=== PATIENT | female | born 1950 | race Caucasian/White ===

== ENCOUNTER → 2024-01-25 14:52 | Outpatient (REF) | payer MEDICARE, OTHER, SELFPAY | LOC: HWRCS 14:52 | PROVIDERS: ATTENDING PHYSICIAN Internal Medicine; FAMILY PHYSICIAN Internal Medicine Geriatric Medicine | DX: I47.10 Supraventricular tachycardia, unspecified (principal); I49.3 Ventricular premature depolarization; I10 Essential (primary) hypertension; I65.23 Occlusion and stenosis of bilateral carotid arteries | CPT/HCPCS: 93306 ==

== ENCOUNTER → 2024-03-01 15:22 | Outpatient (REF) | payer MEDICARE, OTHER, SELFPAY | LOC: HWRAD 15:22 | PROVIDERS: ATTENDING PHYSICIAN Internal Medicine Geriatric Medicine | DX: M54.50 Low back pain, unspecified (principal) | CPT/HCPCS: 72110 ==

== ENCOUNTER 2024-06-30 06:13 | Emergency (ER) | payer MEDICARE, OTHER, SELFPAY ==
[2024-06-30 06:13] VITALS: BMI 29.1
[2024-06-30 06:18] VITALS: BP 154/84
[2024-06-30 06:36] VITALS: BP 143/65
[2024-06-30 07:00] VITALS: BP 143/65
--- NOTE | 2024-06-30 07:13 | ED.GENMED ---
History of Present Illness
General
Chief Complaint: Abdominal Symptoms
Source: patient
Exam Limitations: none
Time Seen by Provider: 06/30/24 06:39
Nursing documentation reviewed up to this point in time: agreed with
History of Present Illness
History of Present Illness:
Patient presents to ED for evaluation after waking up this morning with continual vomiting episodes and loose bowel movements, along with burning sensation in her throat from repeated vomiting episodes. Since then, patient has developed mild upper
abdominal pain. Patient and her spouse attended a gathering at friend's house for dinner. When she went to sleep last night, patient did not experience any discomfort. Denies recent change in medications or diet. Denies sick contact. Denies
previous history of similar symptoms. Denies headache. Denies dizziness. Denies shortness of breath. Denies recent travel.
Past History
Past History
ED Past Medical History: GERD and Hypercholesterolemia
ED Past Surgical History: Cholecystectomy, Gynecological and Orthopedic
Social History
Tobacco: Non-smoker
Alcohol: Occasional
Drug: None
Personal:
Living: with family
Review of Systems
Review of Systems
Allergies reviewed?: Yes
All Other Systems: ROS reviewed and negative except as documented in HPI and ROS
Constitutional: Reports no symptoms; Denies fever
EENT: Reports no symptoms
Respiratory: Reports no symptoms
Cardiac: Reports no symptoms
ABD/GI: Reports abdominal pain, nausea and vomiting
Musculoskeletal: Reports no symptoms
Skin: Reports no symptoms
Neurological: Reports no symptoms
Phy Exam
Physical Exam
Physical Exam:
Physical Exam
General: moderate distress, not acutely ill. afebrile
Head: nc/at. eomi
Neck: supple. no meningeal signs.
Heart: s1/s2 regular rate and rhythm, no murmur. equal radial pulses.
Lungs: no acute respiratory distress. clear bilaterally
Abdomen: normal bowel sounds. not tender. no distention.
Neuro: alert and oriented. no focal neurological deficits
Skin: no rash
Psychiatric: well kept. interactive and cooperative
Extremities: no edema. no calf tenderness.
Course
Orders/Labs/Results
Orders:
Orders
06/30/24 06:48
0.9% Sodium Chloride 1000 ml [Nss] 1,000 ml IV BOLUS
Ketorolac [Toradol] 15 mg IV NOW STA
Ondansetron Injectable [Zofran] 4 mg IV NOW STA
Pantoprazole [Protonix IV] 40 mg IV NOW STA
06/30/24 07:08
Complete Blood Count/With Diff Urgent
Comprehensive Metabolic Panel Urgent
Magnesium Urgent
Abnormal Lab Results
06/30/24
07:08
WBC 11.7 H 10^3/uL
(4.8-10.8)
MCH 31.7 H pg
(27.0-31.0)
MCHC 32.1 L g/dL
(33.0-37.0)
Absolute Neuts (auto) 10.3 H 10^3/uL
(1.4-6.5)
Absolute Lymphs (auto) 0.7 L 10^3/uL
(1.2-3.4)
Neutrophils % 88.2 H %
(42.2-75.2)
Lymphocytes % 6.1 L %
(20.5-51.1)
BUN 24 H mg/dl
(7-17)
Glucose 154 H mg/dl
(70-99)
06/30/24 07:08
06/30/24 07:08
Vital Signs
Initial and Last Documented VS:
Initial Vital Signs
Pulse Resp BP Pulse Ox
54 24 154/84 95
06/30/24 06:18 06/30/24 06:18 06/30/24 06:18 06/30/24 06:18
Last Documented Vital Signs
Pulse Resp BP Pulse Ox
54 24 137/84 94
06/30/24 06:18 06/30/24 06:18 06/30/24 10:00 06/30/24 10:30
MDM/Problems Addressed
MDM/Problems Addressed:
History and exam consistent with likely nonspecific diarrhea, likely viral in nature. Fortunately, patient remains afebrile, hemodynamically stable, and nontoxic-appearing. Patient reports improvement in symptoms after IV hydration. Patient will
be discharged home in stable condition, to the care of her spouse, with recommendation to continue hydration at home along with PMD follow-up as an outpatient, with any continuing or concerning symptoms.
*Critical Care Note
Total Time (30-74mins, 75-104mins- exclusive of procedures): Not Applicable
ED Attending Note
-
Portions of this chart may have been created with voice recognition software.� Occasional wrong word or��sound alike� substitutions may have occurred due to the inherent limitations of voice recognition software.
Discharge Plan
Departure
Patient Disposition: Home (Routine Discharge)
Date of Disposition: 06/30/24
Time of Disposition: 11:15
Patient with high blood pressure during this ER visit?: Yes
Condition: Good
Discharge Problem:
Gastroenteritis
Instructions: Viral gastroenteritis in adults
Prescriptions:
New
ondansetron 4 mg Tablet,Disintegrating
4 mg PO TIDPRN PRN (Reason: nausea/vomiting) Qty: 12 0RF
No Action
multivitamin [Deh-Xkozhl-Zbgxs] 1 EACH tablet
1 ea PO DAILY
simvastatin 20 MG tablet
20 mg PO DAILY
cholecalciferol (vitamin D3) 2,000 UNIT tablet
2,000 unit PO DAILY
vitamin I03-ecovm acid 1 EACH tablet, sublingual
500 mcg PO DAILY
nizatidine [Axid] 150 MG capsule
150 mg PO BID
Claritin
10 mg PO DAILY PRN (Reason: allergies)
Referrals:
Neal Salcido MD [Family Provider] -
Activity Restrictions/Additional Instructions:
As discussed, please follow-up with your primary care physician with any further concerns. Your prescription has been sent electronically to [facility] pharmacy in [place].
Interventions
Interventions:
*Risk Screen - Suicide Last Done: 06/30/24 06:18
*General Assessment Last Done: 06/30/24 06:37
*Neglect/Abuse Screening Last Done: 06/30/24 06:18
ED- Fall Risk Assessment Last Done: 06/30/24 11:20
*ED COVID-19 Vaccine History Last Done: 06/30/24 06:37
*Nursing Disposition Last Done: 06/30/24 11:20
OK-Tmmkdl-Qvliklvfct Assessment Last Done: 06/30/24 06:38
Discharge Date and Time
Discharge Date/Time: 06/30/24 11:20
Print Language: FRENCH
[2024-06-30] MEDS: TORADOL 15 MG IV (07:15)
[2024-06-30] MEDS: NSS 1000 IV (07:15)
[2024-06-30] MEDS: ZOFRAN 4 MG IV (07:16)
[2024-06-30] MEDS: PROTONIX IV 40 MG IV (07:16)
[2024-06-30 07:48] LABS: % Basophils 0.2 % (0-2); % Eosinophils 0.3 % (0-6); % Immature Granulocytes 0.3 % (0-0.5); % Lymphocytes 6.1 % (20.5-51.1); % Monocytes 4.9 % (1.7-9.3); % Neutrophils 88.2 % (42.2-75.2); Absolute Lymphocytes 0.7 10^3/uL (1.2-3.4); Absolute Monocytes 0.6 10^3/uL (0.1-0.6); Absolute Neutrophils 10.3 10^3/uL (1.4-6.5); Hematocrit 44.5 % (37.0-47.0); Hemoglobin 14.3 g/dL (12.0-16.0); Mean Corp Hgb Conc. 32.1 g/dL (33.0-37.0); Mean Corpuscular Hgb 31.7 pg (27.0-31.0); Mean Corpuscular Volume 98.7 fL (81.0-99.0); Mean Platelet Volume 9.4 fL (7.4-10.4); Nucleated Red Blood Cells % 0 %; Platelet Count 162 10^3/uL (130-400); Red Blood Cell Count 4.51 10^6/uL (4.20-5.40); Red Cell Dist. Width 13.1 % (11.5-14.5); White Blood Cell Count 11.7 10^3/uL (4.8-10.8)
[2024-06-30 08:00] VITALS: BP 142/82
[2024-06-30 08:00] LABS: ALT (SGPT) 19 U/L (0-35); AST (SGOT) 25 U/L (14-36); Albumin 4.1 g/dl (3.5-5.0); Alkaline Phosphatase 69 U/L (38-126); Blood Urea Nitrogen 24 mg/dl (7-17); Calcium 8.8 mg/dl (8.4-10.2); Carbon Dioxide 28 mmol/L (22-30); Chloride 105 mmol/L (98-107); Estimated Creatinine Clearance 63 ml/min; Glucose 154 mg/dl (70-99); Magnesium 1.7 mg/dl (1.6-2.3); Potassium 4.4 mmol/L (3.5-5.1); Sodium 141 mmol/L (135-145); Total Bilirubin 0.7 mg/dl (0.2-1.3); Total Protein 6.8 g/dl (6.3-8.2); eGFR > 60.00
[2024-06-30 09:00] VITALS: BP 135/90
[2024-06-30 10:00] VITALS: BP 137/84
== END 2024-06-30 11:20 | disposition home or self-care (01) ==
LOC: EMR 06:13
PROVIDERS: EMERGENCY PHYSICIAN Emergency Medicine; FAMILY PHYSICIAN Internal Medicine Geriatric Medicine
DX: K52.9 Noninfective gastroenteritis and colitis, unspecified (principal); R03.0 Elevated blood-pressure reading, without diagnosis of hypertension; K21.9 Gastro-esophageal reflux disease without esophagitis; E78.00 Pure hypercholesterolemia, unspecified; Z85.820 Personal history of malignant melanoma of skin; Z86.16 Personal history of COVID-19; Z90.49 Acquired absence of other specified parts of digestive tract; Z88.1 Allergy status to other antibiotic agents; Z88.0 Allergy status to penicillin
CPT/HCPCS: 99284; 96374; 96375 ×2; 96361; 80053; 83735; 85025

== ENCOUNTER → 2024-09-06 09:12 | Outpatient (REF) | payer MEDICARE, OTHER, SELFPAY | LOC: HWWDC 09:12 | PROVIDERS: ATTENDING PHYSICIAN Nurse Practitioner Family; FAMILY PHYSICIAN Internal Medicine Geriatric Medicine | DX: Z12.31 Encounter for screening mammogram for malignant neoplasm of breast (principal) | CPT/HCPCS: 77063; 77067 ==

== ENCOUNTER → 2025-05-01 15:04 | Outpatient (REF) | payer MEDICARE, OTHER, SELFPAY | LOC: DHVS 15:04 | PROVIDERS: ATTENDING PHYSICIAN Internal Medicine; FAMILY PHYSICIAN Internal Medicine Geriatric Medicine | DX: I49.3 Ventricular premature depolarization (principal); I65.23 Occlusion and stenosis of bilateral carotid arteries | CPT/HCPCS: 93880 ==

== ENCOUNTER → 2025-05-02 08:14 | Outpatient (REF) | payer MEDICARE, OTHER, SELFPAY | LOC: HWRCS 08:14 | PROVIDERS: ATTENDING PHYSICIAN Internal Medicine; FAMILY PHYSICIAN Internal Medicine Geriatric Medicine | DX: I47.10 Supraventricular tachycardia, unspecified (principal); I49.8 Other specified cardiac arrhythmias; I87.2 Venous insufficiency (chronic) (peripheral); R06.09 Other forms of dyspnea | CPT/HCPCS: 93306 ==